=== PATIENT | female | born 1990 | race Caucasian/White ===

== ENCOUNTER 2017-02-13 08:52 | Emergency (ER) | payer SELFPAY ==
--- NOTE | 2017-02-13 09:42 | ER Document Report ---
HPI - HPI Patient complains to provider of: ear pain Pain Level: 4 Context: 26 yo female c/o bilat ear pain x 2 days. no fever. no ear drainage. Associated Symptoms: Allergy/hay fever, Nonproductive cough, Sinus pain/ drainage. denies: Fever, Headache, Hurts to breath, Nausea, Vomiting, Shortness of breath Exacerbated by: Denies Relieved by: Denies Similar symptoms previously: Yes Recently seen / treated by doctor: No - ROS Systems Reviewed and Negative: Yes All other systems reviewed and negative - REPRODUCTIVE Reproductive: DENIES: : - DERM Skin Color: Normal Past Medical History - General Information source: Patient - Social History Smoking Status: Current Every Day Smoker Frequency of alcohol use: None Drug Abuse: None Lives with: Family Family History: Reviewed & Not Pertinent Patient has suicidal ideation: No Patient has homicidal ideation: No - Past Medical History Cardiac Medical History: Reports: Hx Hypertension - no meds Renal/ Medical History: Reports: Hx Kidney Stones. Denies: Hx Peritoneal Dialysis Past Surgical History: Reports: Hx Oral Surgery - wisdom teeth - Immunizations Hx Diphtheria, Pertussis, Tetanus Vaccination: Yes - 2008 Vertical Provider Document - CONSTITUTIONAL Agree With Documented VS: Yes Exam Limitations: No Limitations General Appearance: WD/WN, No Apparent Distress - INFECTION CONTROL TRAVEL OUTSIDE OF THE [place] IN LAST 30 DAYS: No - HEENT HEENT: Atraumatic, PERRLA. negative: Tympanic Membrane Red - dull, + effusion - NECK Neck: Normal Inspection, Supple. negative: Lymphadenopathy-Left, Lymphadenopathy-Right - RESPIRATORY Respiratory: Breath Sounds Normal, No Respiratory Distress O2 Sat by Pulse Oximetry: 97 - CARDIOVASCULAR Cardiovascular: Regular Rate, Regular Rhythm - NEURO Level of Consciousness: Awake, Alert, Appropriate - DERM Integumentary: Warm, Dry, No Rash Course - Vital Signs Vital signs: Temp Pulse Resp BP Pulse Ox 97.9 F 95 20 161/108 H 97 02/13/17 09:03 02/13/17 09:03 02/13/17 09:03 02/13/17 09:03 02/13/17 09:03 Discharge - Discharge Clinical Impression: Serous otitis media Qualifiers: Laterality: bilateral Chronicity: acute Recurrence: not specified as recurrent Qualified Code(s): H65.03 - Acute serous otitis media, bilateral Condition: Stable Disposition: HOME, SELF-CARE Instructions: Serous Otitis Media ([facility]), Decongestant-Antihistamine Medication ([facility]), OTC Antihistamines ([facility]), Acetaminophen Additional Instructions: Recommend antihistamine daily such as Claritin,Allergra, Zyrtec Recommend intranasal steroid daily such as Flonase Recommend decongestant Coricidin HBP - ask the pharmacist for it Tylenol for discomfort Follow up with primary care if symptoms persist
[2017-02-13 09:56] VITALS: BP 159/109
== END 2017-02-13 09:51 | disposition home or self-care (01) ==
LOC: ER 08:52
DX: H65.03 Acute serous otitis media, bilateral (principal); H92.03 Otalgia, bilateral; F17.200 Nicotine dependence, unspecified, uncomplicated
CPT/HCPCS: 99282

== ENCOUNTER 2017-04-04 15:10 | Emergency (ER) | payer SELFPAY ==
[2017-04-04] MEDS ORDERED: ONDANSETRON 4 MG TAB.RAPDIS SL ONE (16:00)
[2017-04-04] MEDS ORDERED: KETOROLAC TROMETHAMINE 60 MG/2 ML SDV IM ONE (16:00)
--- NOTE | 2017-04-04 16:01 | ER Document Report ---
ED GI/ - General Chief Complaint: Hematuria, KNOX, Flank pain Stated Complaint: BLOOD IN URINE,HEADACHE,FLANK PAIN Time Seen by Provider: 04/04/17 16:00 Mode of Arrival: Ambulatory Information source: Patient TRAVEL OUTSIDE OF THE U.[place]. IN LAST 30 DAYS: No - HPI Patient complains to provider of: Flank pain, Hematuria Onset: This morning Timing/Duration: Gradual Quality of pain: Achy Severity at maximum: Mild Severity in ED: Mild Pain Level: 2 Location: Right flank Vaginal bleeding (Compared to normal period): None Associated symptoms: Hematuria, Nausea, Urinary urgency Exacerbated by: Denies Relieved by: Denies Similar symptoms previously: Yes Recently seen / treated by doctor: No Notes: 04/04/17 16:01 Patient is a 26-year-old female with a history of polycystic kidney disease, polycystic ovarian hypertension, who presents to the emergency room complaining of hematuria with urinary urgency and right-sided flank pain that started this morning, she denies any nausea or vomiting, no fever or chills, she does report a decreased appetite and has now developed a migraine headache - Related Data Allergies/Adverse Reactions: No Known Allergies Allergy (Verified 02/13/17 09:02) Past Medical History - General Information source: Patient Last Menstrual Period: n/a - Social History Smoking Status: Current Every Day Smoker Family History: Reviewed & Not Pertinent - Past Medical History Cardiac Medical History: Reports: Hx Hypertension - no meds Renal/ Medical History: Reports: Hx Kidney Stones. Denies: Hx Peritoneal Dialysis Past Surgical History: Reports: Hx Oral Surgery - wisdom teeth - Immunizations Hx Diphtheria, Pertussis, Tetanus Vaccination: Yes - 2007 Review of Systems - Review of Systems Constitutional: No symptoms reported EENT: No symptoms reported Cardiovascular: No symptoms reported Respiratory: No symptoms reported Gastrointestinal: No symptoms reported Genitourinary: See HPI Female Genitourinary: No symptoms reported Musculoskeletal: No symptoms reported Skin: No symptoms reported Hematologic/Lymphatic: No symptoms reported Neurological/Psychological: See HPI -: Yes All other systems reviewed and negative Physical Exam - Vital signs Vitals: Temp Pulse Resp BP Pulse Ox 98.4 F 87 20 175/123 H 97 04/04/17 15:40 04/04/17 15:40 04/04/17 15:40 04/04/17 15:40 04/04/17 15:40 - Notes Notes: - General General appearance: Appears well, Alert In distress: None - HEENT Head: Normocephalic, Atraumatic Eyes: Normal Conjunctiva: Normal Extraocular movements intact: Yes Eyelashes: Normal Pupils: PERRL - Respiratory Respiratory status: No respiratory distress - Cardiovascular Rhythm: Regular - Abdominal Inspection: Normal, obese - Back Back: Normal - Extremities General upper extremity: Normal inspection General lower extremity: Normal inspection - Neurological Neuro grossly intact: Yes Orientation: AAOx4 Barbara Coma Scale Eye Opening: Spontaneous Foreman Coma Scale Verbal: Oriented Barbara Coma Scale Motor: Obeys Commands Foreman Coma Scale Total: 15 - Psychological Associated symptoms: Normal affect, Normal mood - Skin Skin Temperature: Warm Skin Moisture: Dry Skin Color: Normal Course - Re-evaluation Re-evalutation: 04/04/17 16:24 Patient symptoms consistent with urinary tract infection, urinalysis confirms this, she will be discharged with antibiotics and instructions for follow-up, advised to return if symptoms worsen, patient acknowledges understanding and agreement with this plan - Vital Signs Vital signs: Temp Pulse Resp BP Pulse Ox 98.4 F 87 20 175/123 H 97 04/04/17 15:40 04/04/17 15:40 04/04/17 15:40 04/04/17 15:40 04/04/17 15:40 - Laboratory Laboratory results interpreted by me: 04/04/17 16:05 Urine Protein 100 H Urine Blood LARGE H Ur Leukocyte Esterase TRACE H Discharge - Discharge Clinical Impression: Urinary tract infection Qualifiers: Urinary tract infection type: site unspecified Hematuria presence: with hematuria Qualified Code(s): N39.0 - Urinary tract infection, site not specified Condition: Stable Disposition: HOME, SELF-CARE Instructions: Urinary Tract Infection ([facility]), Cephalexin ([facility]) Additional Instructions: Follow up with your primary care provider in one to 2 days. Return to the emergency room immediately if symptoms worsen or any additional concerns. Prescriptions: Cephalexin Monohydrate [Keflex 500 mg Capsule] 500 mg PO BID #20 capsule Lisinopril 40 mg PO DAILY #30 tablet
[2017-04-04 16:20] LABS: APPEARANCE,URINE SLIGHTLY-CLOUDY; BILIRUBIN,URINE NEGATIVE (NEGATIVE); GLUCOSE, URINE NEGATIVE (NEGATIVE); KETONES,URINE NEGATIVE (NEGATIVE); LEUKOCYTE ESTERASE,URINE TRACE (NEGATIVE); NITRITE,URINE NEGATIVE (NEGATIVE); PROTEIN,URINE 100 mg/dL (NEGATIVE); URINE SPECIFIC GRAVITY 1.008; UROBILINOGEN,URINE NEGATIVE mg/dL (<2.0)
[2017-04-04 17:00] VITALS: BP 161/117
== END 2017-04-04 17:01 | disposition home or self-care (01) ==
LOC: ER 15:10
DX: N39.0 Urinary tract infection, site not specified (principal); R31.9 Hematuria, unspecified; R39.15 Urgency of urination; G43.909 Migraine, unspecified, not intractable, without status migrainosus; Q61.3 Polycystic kidney, unspecified; E28.2 Polycystic ovarian syndrome; I10 Essential (primary) hypertension; R63.0 Anorexia; F17.200 Nicotine dependence, unspecified, uncomplicated; Z87.442 Personal history of urinary calculi
CPT/HCPCS: 99283; 96372; 87086; 81025; 81001; J1885; S0119

== ENCOUNTER 2018-05-12 14:21 | Emergency (ER) | payer MEDICARE, MEDICAID ==
[2018-05-12] MEDS ORDERED: CEFTRIAXONE INJ 1000 MG VIAL IV ONE (14:35)
--- NOTE | 2018-05-12 14:37 | ER Document Report ---
ED Medical Screen (RME) - General Chief Complaint: Urinary Problem Stated Complaint: POSSIBLE URINARY PROBLEM Time Seen by Provider: 05/12/18 14:32 TRAVEL OUTSIDE OF THE U.S. IN LAST 30 DAYS: No - HPI Patient complains to provider of: Right flank pain Notes: 05/12/18 14:36 Patient is a 27-year-old female presenting to the emergency room today complaining of right flank pain, patient has a history of end-stage renal disease, secondary to polycystic kidney disease, she does peritoneal dialysis, has a history of cyst rupture in the past with similar symptoms, she reports chills as well - Related Data Allergies/Adverse Reactions: No Known Allergies Allergy (Verified 02/13/17 09:02) Past Medical History - Past Medical History Cardiac Medical History: Reports: Hx Hypertension - no meds Renal/ Medical History: Reports: Hx Kidney Stones. Denies: Hx Peritoneal Dialysis Past Surgical History: Reports: Hx Oral Surgery - wisdom teeth - Immunizations Hx Diphtheria, Pertussis, Tetanus Vaccination: Yes - 2007 Physical Exam - Vital signs Vitals: Temp Pulse Resp BP Pulse Ox 99.1 F 94 18 140/101 H 97 05/12/18 14:26 05/12/18 14:26 05/12/18 14:26 05/12/18 14:26 05/12/18 14:26 Course - Vital Signs Vital signs: Temp Pulse Resp BP Pulse Ox 99.1 F 94 18 140/101 H 97 05/12/18 14:26 05/12/18 14:26 05/12/18 14:26 05/12/18 14:26 05/12/18 14:26 Doctor's Discharge - Discharge Referrals: Shelia CHAUDHARI MD [Primary Care Provider] - Follow up as needed
[2018-05-12 15:07] LABS: APPEARANCE,URINE CLEAR; BILIRUBIN,URINE NEGATIVE (NEGATIVE); COLOR,URINE STRAW; GLUCOSE, URINE 50 mg/dL (NEGATIVE); KETONES,URINE NEGATIVE (NEGATIVE); LEUKOCYTE ESTERASE,URINE TRACE (NEGATIVE); NITRITE,URINE NEGATIVE (NEGATIVE); PROTEIN,URINE 100 mg/dL (NEGATIVE); URINE SPECIFIC GRAVITY 1.008; UROBILINOGEN,URINE NEGATIVE mg/dL (<2.0)
[2018-05-12 15:41] LABS: ABSOLUTE BASOPHILS # (AUTO) 0.1 10^3/uL (0.0-0.2); ABSOLUTE EOSINOPHILS # (AUTO) 0.2 10^3/uL (0.0-0.6); ABSOLUTE LYMPHOCYTES (AUTO) 2.1 10^3/uL (0.5-4.7); ABSOLUTE MONOCYTES (AUTO) 0.4 10^3/uL (0.1-1.4); ABSOLUTE NEUT (AUTO) 5.9 10^3/uL (1.7-8.2); BASOPHILS % (AUTO) 0.9 % (0-2); EOSINOPHILS % (AUTO) 2.3 % (0-6); HEMATOCRIT 41.8 % (36.0-47.0); HEMOGLOBIN 14.1 g/dL (12.0-15.5); LYMPHOCYTES % (AUTO) 24.4 % (13-45); MEAN CORPUSCULAR HEMOGLOBIN 28.2 pg (27.0-33.4); MEAN CORPUSCULAR HGB CONC 33.6 g/dL (32.0-36.0); MEAN CORPUSCULAR VOLUME 84 fl (80-97); MONOCYTES % (AUTO) 4.8 % (3-13); PLATELET COUNT 305 10^3/uL (150-450); RED BLOOD COUNT 4.99 10^6/uL (3.72-5.28); RED CELL DISTRIBUTION WIDTH 13.9 % (11.5-14.0); SEGMENTED NEUTROPHILS % (AUTO) 67.6 % (42-78); TOTAL CELLS COUNTED % (AUTO) 100 %; WHITE BLOOD COUNT 8.7 10^3/uL (4.0-10.5)
[2018-05-12 15:55] LABS: ALANINE AMINOTRANSFERASE 21 U/L (9-52); ALBUMIN 4.3 g/dL (3.5-5.0); ALKALINE PHOSPHATASE 55 U/L (38-126); ANION GAP 12 (5-19); ASPARTATE AMINO TRANSFERASE 20 U/L (14-36); BILIRUBIN,DIRECT 0.3 mg/dL (0.0-0.4); BILIRUBIN,TOTAL 0.7 mg/dL (0.2-1.3); BLOOD UREA NITROGEN 35 mg/dL (7-20); CALCIUM 9.3 mg/dL (8.4-10.2); CARBON DIOXIDE 21 mmol/L (22-30); CHLORIDE 109 mmol/L (98-107); GLUCOSE 84 mg/dL (75-110); POTASSIUM 5.1 mmol/L (3.6-5.0); SODIUM 142.1 mmol/L (137-145); TOTAL PROTEIN 8.1 g/dL (6.3-8.2)
[2018-05-12] MEDS ORDERED: OXYCODONE HCL IR 5 MG TABLET PO ONE (16:03)
--- NOTE | 2018-05-12 16:51 | ER Document Report ---
ED General - General Chief Complaint: Urinary Problem Stated Complaint: POSSIBLE URINARY PROBLEM Time Seen by Provider: 05/12/18 14:32 TRAVEL OUTSIDE OF THE [place] IN LAST 30 DAYS: No - HPI Notes: 27-year-old female with a history of polycystic kidney disease on peritoneal dialysis presents with right-sided flank pain for the past 2 days. Pain is not controlled with her normal Ultram for chronic pain. She recently moved from [place] back to [place] and has not yet established care with new physicians. Her peritoneal dialysate has been clear. She has no fevers. She has no abdominal pain, just right-sided flank pain. No blood in her urine. No fevers, chills, vomiting. She states increased pain usually represents ruptured cyst or urinary tract infection. - Related Data Allergies/Adverse Reactions: No Known Allergies Allergy (Verified 02/13/17 09:02) Past Medical History - Social History Smoking Status: Current Every Day Smoker Chew tobacco use (# tins/day): No Frequency of alcohol use: None Drug Abuse: None Family History: Reviewed & Not Pertinent Patient has suicidal ideation: No Patient has homicidal ideation: No - Past Medical History Cardiac Medical History: Reports: Hx Hypertension - no meds Renal/ Medical History: Reports: Hx Kidney Stones, Hx Peritoneal Dialysis, Other - PKD Past Surgical History: Reports: Hx Oral Surgery - wisdom teeth - Immunizations Hx Diphtheria, Pertussis, Tetanus Vaccination: Yes - 2007 Review of Systems - Review of Systems Notes: REVIEW OF SYSTEMS: CONSTITUTIONAL: -fevers, -chills EENT: -eye pain, -difficulty swallowing, -nasal congestion CARDIOVASCULAR: -chest pain, -syncope. RESPIRATORY: -cough, -SOB GASTROINTESTINAL: -abdominal pain, -nausea, -vomiting, -diarrhea GENITOURINARY: -dysuria, -hematuria MUSCULOSKELETAL: +back pain, -neck pain SKIN: -rash or skin lesions. HEMATOLOGIC: -easy bruising or bleeding. LYMPHATIC: -swollen, enlarged glands. NEUROLOGICAL: -altered mental status or loss of consciousness, -headache, - neurologic symptoms PSYCHIATRIC: -anxiety, -depression. Physical Exam - Vital signs Vitals: Temp Pulse Resp BP Pulse Ox 99.1 F 94 18 140/101 H 97 05/12/18 14:26 05/12/18 14:26 05/12/18 14:26 05/12/18 14:26 05/12/18 14:26 - Notes Notes: PHYSICAL EXAMINATION: GENERAL: Well-appearing, well-nourished and in no acute distress. Morbid obesity HEAD: Atraumatic, normocephalic. EYES: Pupils equal round and reactive to light, extraocular movements intact, conjunctiva are normal. ENT: nares patent, oropharynx clear without exudates. Moist mucous membranes. NECK: Normal range of motion, supple without lymphadenopathy LUNGS: Breath sounds clear to auscultation bilaterally and equal. No wheezes rales or rhonchi. HEART: Regular rate and rhythm, no chest wall tenderness ABDOMEN: Soft, nontender, normoactive bowel sounds. No guarding, no rebound. No masses appreciated. Dialysis catheter right lower abdomen without surrounding erythema, warmth, tenderness EXTREMITIES: Normal range of motion, no pitting or edema. No cyanosis. Right flank tenderness NEUROLOGICAL: Cranial nerves grossly intact. Normal speech, normal gait. Normal sensory and motor exams. PSYCH: Normal mood, normal affect. SKIN: Warm, Dry, normal turgor, no rashes or lesions noted. Course - Re-evaluation Re-evalutation: 05/12/18 16:43 No tachycardia or fever. No leukocytosis. Urine does not support urinary tract infection. Benign exam. Patient sitting in bed, smiling. Requesting pain medication. Reviewed [place] controlled substance report and she does NOT have frequent narcotic prescriptions. Will give few days of Al[place] until she can follow-up with a new physician. Urine sent for culture. Rocephin ordered by triage physician for suspected infection, will not continue antibiotics. At this time will discharge with return precautions and follow-up recommendations. Verbal discharge instructions given a the bedside and opportunity for questions given. Medication warnings reviewed. Patient is in agreement with this plan and has verbalized understanding of return precautions and the need for primary care follow-up in the next 24-72 hours. - Vital Signs Vital signs: Temp Pulse Resp BP Pulse Ox 99.1 F 94 18 140/101 H 97 05/12/18 14:26 05/12/18 14:26 05/12/18 14:26 05/12/18 14:26 05/12/18 14:26 - Laboratory Result Diagrams: 05/12/18 14:55 05/12/18 14:55 Laboratory results interpreted by me: 05/12/18 05/12/18 14:40 14:55 Potassium 5.1 H Chloride 109 H Carbon Dioxide 21 L BUN 35 H Creatinine 5.18 H Est GFR ( Amer) 12 L Est GFR (Non-Af Amer) 10 L Urine Protein 100 H Urine Glucose (UA) 50 H Urine Blood SMALL H Ur Leukocyte Esterase TRACE H Discharge - Discharge Condition: Good Disposition: HOME, SELF-CARE Additional Instructions: Your urine did not show any signs of infection today, but it was sent for culture. You did receive 1 dose of antibiotics. Your creatinine was near baseline. Return for any worsening or concerning symptoms such as cloudy dialysate, fever, abdominal pain, blood in urine. Flank Pain We weren't able to prove an exact cause for your flank pain. Pain in the flank can be caused by a muscle strain or spasm. Sometimes a kidney stone causes pain, but can't be found on our tests. Infection in the kidney should be evident on a urine test. Early shingles can occasionally cause flank pain, without the rash that proves the diagnosis. On rare occasions, disease of the pancreas, aorta, spleen, or colon can create pain in the flank. At this time, there's no evidence of a dangerous condition, and it seems safe for you to be at home. If the pain goes away and does not come back, no further testing will be needed. If pain persists, or becomes more severe, we may need to repeat some tests or order additional new testing. Blood in the urine, urgency to urinate frequently, and pain that radiates to the groin can indicate a kidney stone. Fever may mean that the pain is due to infection, either of the kidney or the colon (diverticulitis). If your pain is early shingles, you should develop an eruption of blisters in the painful area within a few days. Call the doctor or return if you have pain that is spreading or becoming more severe, pain that does not resolve with time, fever, or any other new symptoms. Prescriptions: Hydrocodone/Acetaminophen [[place] 5-325 mg Tablet] 1 tab PO Q6 PRN #10 tablet PRN Reason: Referrals: Shelia CHAUDHARI MD [ACTIVE STAFF] - Follow up as needed COLT CLOUD MD [ACTIVE STAFF] - Follow up in 3-5 days
[2018-05-12 17:16] VITALS: BP 136/101
== END 2018-05-12 17:15 | disposition home or self-care (01) ==
LOC: ER 14:21
DX: Q61.3 Polycystic kidney, unspecified (principal); Z99.2 Dependence on renal dialysis; M54.9 Dorsalgia, unspecified; R10.9 Unspecified abdominal pain; G89.29 Other chronic pain; Z79.891 Long term (current) use of opiate analgesic; F17.200 Nicotine dependence, unspecified, uncomplicated; I10 Essential (primary) hypertension; Z87.442 Personal history of urinary calculi
CPT/HCPCS: 99284; 96365; 36415; 87040; 87086; 85025; 81025; 80053; 81001; 83605; J0696; A9270

== ENCOUNTER → 2018-05-18 | Outpatient (CLI) | payer MEDICARE, MEDICAID ==
--- NOTE | 2018-05-18 15:31 | RADIOLOGY REPORT (SQ) ---
EXAM DESCRIPTION: CT ABDOMEN NO ORAL OR IV COMPLETED DATE/TIME: 05/18/2018 3:17 pm REASON FOR STUDY: POLYCYSTIC KIDNEY, ADULT TYPE Q61.2 POLYCYSTIC KIDNEY, ADULT TYPE COMPARISON: 05/23/2014. TECHNIQUE: CT scan of the abdomen performed without intravenous contrast and without oral contrast. Images reviewed with lung, soft tissue, and bone windows. Reconstructed coronal and sagittal MPR im ages reviewed. All images stored on PACS. All CT scanners at this facility use dose modulation, iterative reconstruction, and/or weight based d osing when appropriate to reduce radiation dose to as low as reasonably achievable (ALARA). [facility]: Dose Right [facility]: CareDose [facility]: Dose Right [facility]: Teradose 4D [facility]: Vaccsys RADIATION DOSE: CT Rad equipment meets quality standard of care and radiation dose reduction techniq ues were employed. CTDIvol: 27.3 - 29.3 mGy. DLP: 1452 mGy-cm.mGy. LIMITATIONS: None. FINDINGS: LOWER CHEST: No significant findings. No nodules or infiltrates. NONCONTRASTED LIVER, SPLEEN, ADRENALS: Evaluation limited by lack of IV contrast. No identified sign ificant masses. PANCREAS: No masses. No peripancreatic inflammatory changes. GALLBLADDER: No identified stones by CT criteria. No inflammatory changes to suggest cholecystitis. RIGHT KIDNEY AND URETER: Again seen is diffuse enlargement with innumerable cortical cysts of variabl e size and density. Assessment limited by lack of IV contrast. No significant calcification. No hydro nephrosis or hydroureter. LEFT KIDNEY AND URETER: Again seen is diffuse enlargement with innumerable cortical cysts of variable size and density. . Assessment limited by lack of IV contrast. No significant calcification. No hyd ronephrosis or hydroureter. AORTA AND RETROPERITONEUM: No aneurysm. No retroperitoneal masses or adenopathy. BOWEL AND PERITONEAL CAVITY: No obvious masses or inflammatory changes. No free fluid. APPENDIX: Not visualized. ABDOMINAL WALL: No abdominal wall hernias. BONES: No significant findings. OTHER: Peritoneal dialysis catheter. The distal portion not included on the study. No other signifi cant finding. IMPRESSION: STABLE CT FINDINGS OF POLYCYSTIC KIDNEY DISEASE. NO SIGNIFICANT CHANGE. NO OTHER ACUT E OR SIGNIFICANT FINDINGS. TECHNICAL DOCUMENTATION: JOB ID: [id number] Quality ID # [id number]: Final reports with documentation of one or more dose reduction techniques (e.g., Au tomated exposure control, adjustment of the mA and/or kV according to patient size, use of iterative reconstruction technique) 2010 [employer]- All Rights Reserved Reading location - IP/workstation name: [email or web address]
== END ==
LOC: RAD 15:05
PROVIDERS: ATTEND Internal Medicine Nephrology
DX: Q61.2 Polycystic kidney, adult type (principal)
CPT/HCPCS: 74150